=== PATIENT | female | born 1980 | race African-American/Black ===

== ENCOUNTER 2021-04-23 08:42 | Emergency (ER) | payer OTHER ==
[~2021-04-23] VITALS: Ht 165.1 cm; Wt 68.0 kg
--- NOTE | ~2021-04-23 | EMS ---
[address] [address] EMS Patient Care Report Name: MADI DIAZ Room #: DEP PETEY Ascencio#: [id number] Admission: 04/23/21 Attend Phys: Discharge: 04/23/21 Date of : 76 Report #: [id number] THIS REPORT FOR: //name// Report Transmitted: 04/23/2021 10:03 EMS Care Summary [place], [place]/[facility] Incident [id number] @ 04/23/2021 08:08 Incident Location [address] [place] [address] Patient MADI DIAZ Female, 40 Years 1980 Patient Address [id number] [place] [address] Patient History Hypertension (HTN),Bipolar II Disorder,Migraine, Patient Allergies Demerol, Patient Medications Prozac, Hydrochlorothiazide (Hctz), Chief Complaint Head Ache Disposition Transported No Lights/[place] Dispatch Reason Headache Transported To [facility] Narrative Medic 36 was dispatched on a headache, once we arrived we found the patient walking around her home she stated her chief complaint was a "headache". She was speaking in complete sentences with no extra work of breathing. Patient walked to the ambulance, Patient was put on the stretcher and was secured with [address] [address] EMS Patient Care Report Name: MADI DIAZ Room #: DEP PETEY Ascencio#: [id number] Admission: 04/23/21 Attend Phys: Discharge: 04/23/21 Date of : 76 Report #: [id number] seatbelts. Vital signs were monitored in route to the hospital. Patient report was given. PT stood and pivoted to the hospital bed and transfer of care was given to ER staff at [facility]. M36 placed back in service. Initial Vitals @08:25P: 98,R: 14,BP: 166/95,Pain: 10/10,GCS: 15,SpO2: 100,Revised Trauma: 12, @08:51P: 98,R: 13,BP: 146/98,Pain: 10/10,GCS: 15,SpO2: 100,Revised Trauma: 12, Assessments @08:28MENTAL:Person Oriented,Place Oriented,Time Oriented,Event Oriented,SKIN:HEENT:Head/Face: Drainage,LUNG SOUNDS:ABDOMEN:PELVIS//GI:EXTREMITIES:PULSE:Radial: 2+ Normal,NEURO: Impression Migraine Procedures @08:20Oxygen FlowRate: 2 Device: Nasal Cannula (NC) Response: UnchangedSucceeded@08:18BLS AssessmentResponse: Unchanged Timeline 08:05,Call Received 08:05,Dispatch Notified 08:08,Dispatched 08:09,En Route 08:15,On Scene 08:16,At Patient 08:18,BLS Assessment,Response: Unchanged 08:20,Oxygen FlowRate: 2 Device: Nasal Cannula (NC) Response: UnchangedSucceeded, 08:25,BP: 166/95 M,PULSE: 98,RR: 14 R,SPO2: 100 Ox,ETCO2: ,BG: ,PAIN: 10,GCS: 15, 08:45,Depart Scene 08:51,BP: 146/98 M,PULSE: 98,RR: 13 R,SPO2: 100 Ox,ETCO2: ,BG: ,PAIN: 10,GCS: 15, 08:52,At Destination 08:55,Call Closed Disclaimer v1.1 Copyright 2020 [employer] This EMS Care Summary contains data elements from the applicable legal record (which may be displayed differently). It is designed to provide pertinent information for the following purposes: continuity of care, clinical quality, and state data reporting. The complete legal record is available to ED staff and administrators of the receiving hospital in [email or web address]'s Patient Tracker. All data is provided "as is."
[2021-04-23 09:58] VITALS: BP 154/99
== END 2021-04-23 09:59 | disposition home or self-care (01) ==
LOC: ER 08:42
DX: U07.1 COVID-19 (principal); G43.909 Migraine, unspecified, not intractable, without status migrainosus; Z88.8 Allergy status to other drugs, medicaments and biological substances